=== PATIENT | female | born 1935 | race Asian ===

== ENCOUNTER 2017-05-08 13:27 | Inpatient (IN) | payer OTHER ==
[~2017-05-08] VITALS: Ht 149.9 cm; Wt 45.4 kg
[~2017-05-08 13:27] MED LIST: AMLODIPINE10 M1 PO; ASPI-COR81 M3 PO; CELEBREX200 MG PO; COZAAR50 MG PO; EPI-PEN1 MG/ML MR; GENTEAL OP; LIPI20 PO; LOP50 PO; METFORMIN500 M1 PO; REFRESH PM1 OI1 OP; RESTASIS0.051 OP; SANCTURA20 M1 PO; SYSTANE OP; XALATAN2.5 ML OP
[2017-05-08 18:53] LABS: PLATELET COUNT 254 x10^3mcL (130-400); RED CELL DISTRIBUTION WIDTH 12.4 % (11.5-14.5)
[2017-05-08 18:54] LABS: BASOPHIL % 2.4 % (0-2)
[2017-05-08 19:07] LABS: ALBUMIN 4.2 g/dL (3.4-5.0); ALKALINE PHOSPHATASE 64 U/L (46-116); ALT/SGPT 31 U/L (14-59); AST/SGOT 43 U/L (15-37); BILIRUBIN TOTAL 0.52 mg/dL (0.20-1.00); CALCIUM 9.2 mg/dL (8.5-10.1); CARBON DIOXIDE 27.4 mmol/L (21-32); CHLORIDE SERUM 79 mmol/L (98-107); CREATININE SERUM 0.7 mg/dL (0.6-1.0); GLUCOSE SERUM 115 mg/dL (74-106); POTASSIUM SERUM 3.2 mmol/L (3.5-5.1); TOTAL PROTEIN, SERUM 8.1 g/dL (6.4-8.2)
[2017-05-08 19:09] LABS: SODIUM SERUM 118 mmol/L (136-145)
[2017-05-08 19:14] LABS: UA SPECIFIC GRAVITY 1.015 (1.005-1.035); microscopic required? YES; urine erythrocyte TRACE (NEGATIVE)
[2017-05-08 19:18] LABS: MAGNESIUM 1.6 mg/dL (1.8-2.4); PHOSPHOROUS 2.8 mg/dL (2.5-4.9)
[2017-05-08] MEDS ORDERED: COZAAR100 MG PO (19:59)
[2017-05-08] MEDS ORDERED: LIPI20 PO (20:00)
[2017-05-08] MEDS ORDERED: CARVEDILOL3.125 M1 PO (20:00)
[2017-05-08] MEDS ORDERED: NOR10 PO (20:00)
[2017-05-08] MEDS ORDERED: RESTASIS0.051 OU (20:01)
[2017-05-08] MEDS ORDERED: LATANOPROST2.5 ML OU (20:01)
[2017-05-08] MEDS ORDERED: EPIPEN JR 20.5 MG/ML IM (20:02)
[2017-05-08] MEDS ORDERED: ASPIR 8181 MG PO (20:02)
[2017-05-08] MEDS ORDERED: RETAINE CMC 0.5% OP (20:03)
[2017-05-08] MEDS ORDERED: CENTRUM SILVER1 EACH PO (20:04)
[2017-05-08] MEDS ORDERED: HYDROCHLOROTH12.5 M3 PO (20:04)
[2017-05-08 21:17] LABS: CHOLESTEROL/HDL RATIO 1.7
[2017-05-08 21:19] LABS: T3 TOTAL 0.84 ng/mL
[2017-05-08 21:25] LABS: FREE T4 1.58 ng/dL (0.76-1.46); FREE THYROXINE INDEX 4.5 ug/dL (1.4-4.5); T4(THYROXINE) 12.5 ug/dL (4.7-13.3)
[2017-05-08 22:16] VITALS: BP 161/59
[2017-05-09] VITALS (7 sets, daily range): BP systolic 108–156; BP diastolic 45–64
[2017-05-09 06:38] LABS: BASOPHIL % 0.6 % (0-2); PLATELET COUNT 222 x10^3mcL (130-400); RED CELL DISTRIBUTION WIDTH 12.6 % (11.5-14.5)
[2017-05-09 06:51] LABS: CALCIUM 8.5 mg/dL (8.5-10.1); CARBON DIOXIDE 27.3 mmol/L (21-32); CHLORIDE SERUM 80 mmol/L (98-107); CREATININE SERUM 0.7 mg/dL (0.6-1.0); GLUCOSE SERUM 89 mg/dL (74-106); PHOSPHOROUS 2.6 mg/dL (2.5-4.9); POTASSIUM SERUM 3.5 mmol/L (3.5-5.1)
[2017-05-09 07:01] LABS: SODIUM SERUM 115 mmol/L (136-145)
[2017-05-09 11:22] LABS: CALCIUM 7.9 mg/dL (8.5-10.1); CARBON DIOXIDE 28.4 mmol/L (21-32); CHLORIDE SERUM 88 mmol/L (98-107); CREATININE SERUM 0.8 mg/dL (0.6-1.0); GLUCOSE SERUM 113 mg/dL (74-106); POTASSIUM SERUM 3.7 mmol/L (3.5-5.1)
[2017-05-09 11:25] LABS: SODIUM SERUM 124 mmol/L (136-145)
[2017-05-09 14:39] LABS: CALCIUM 7.8 mg/dL (8.5-10.1); CARBON DIOXIDE 24.1 mmol/L (21-32); CHLORIDE SERUM 85 mmol/L (98-107); CREATININE SERUM 0.8 mg/dL (0.6-1.0); GLUCOSE SERUM 173 mg/dL (74-106); POTASSIUM SERUM 3.4 mmol/L (3.5-5.1)
[2017-05-09 14:42] LABS: SODIUM SERUM 118 mmol/L (136-145)
[2017-05-09 19:20] LABS: CALCIUM 7.9 mg/dL (8.5-10.1); CARBON DIOXIDE 25.6 mmol/L (21-32); CHLORIDE SERUM 92 mmol/L (98-107); CREATININE SERUM 0.8 mg/dL (0.6-1.0); GLUCOSE SERUM 102 mg/dL (74-106); POTASSIUM SERUM 3.6 mmol/L (3.5-5.1); SODIUM SERUM 128 mmol/L (136-145)
[2017-05-10 00:38] LABS: CALCIUM 7.7 mg/dL (8.5-10.1); CARBON DIOXIDE 23.4 mmol/L (21-32); CHLORIDE SERUM 87 mmol/L (98-107); GLUCOSE SERUM 88 mg/dL (74-106); POTASSIUM SERUM 3.8 mmol/L (3.5-5.1)
[2017-05-10 00:41] LABS: SODIUM SERUM 122 mmol/L (136-145)
[2017-05-10 05:58] VITALS: BP 104/50
[2017-05-10 06:12] LABS: BASOPHIL % 0.5 % (0-2); PLATELET COUNT 223 x10^3mcL (130-400); RED CELL DISTRIBUTION WIDTH 12.6 % (11.5-14.5)
[2017-05-10 06:21] LABS: CALCIUM 8.3 mg/dL (8.5-10.1); CARBON DIOXIDE 25.8 mmol/L (21-32); CHLORIDE SERUM 91 mmol/L (98-107); CREATININE SERUM 0.9 mg/dL (0.6-1.0); GLUCOSE SERUM 94 mg/dL (74-106); MAGNESIUM 1.9 mg/dL (1.8-2.4); PHOSPHOROUS 2.4 mg/dL (2.5-4.9)
[2017-05-10 06:38] LABS: SODIUM SERUM 124 mmol/L (136-145)
[2017-05-10 08:53] VITALS: BP 131/53
[2017-05-10 13:18] VITALS: Ht 149.9 cm; Wt 45.4 kg
[2017-05-10 13:23] LABS: CALCIUM 8.5 mg/dL (8.5-10.1); CARBON DIOXIDE 25.5 mmol/L (21-32); CHLORIDE SERUM 91 mmol/L (98-107); CREATININE SERUM 0.9 mg/dL (0.6-1.0); GLUCOSE SERUM 162 mg/dL (74-106); POTASSIUM SERUM 4.1 mmol/L (3.5-5.1); SODIUM SERUM 126 mmol/L (136-145)
[2017-05-10 13:33] VITALS: BP 129/67
[2017-05-10 15:22] LABS: COLLECTION TIME URINE 24 HOUR
[2017-05-10 15:23] LABS: VOLUME UR 600 ML
[2017-05-10 17:46] VITALS: BP 133/56
[2017-05-10 18:39] LABS: CALCIUM 8.2 mg/dL (8.5-10.1); CARBON DIOXIDE 26.5 mmol/L (21-32); CHLORIDE SERUM 97 mmol/L (98-107); CREATININE SERUM 0.9 mg/dL (0.6-1.0); GLUCOSE SERUM 143 mg/dL (74-106); POTASSIUM SERUM 4.3 mmol/L (3.5-5.1); SODIUM SERUM 132 mmol/L (136-145)
[2017-05-10 21:27] VITALS: BP 146/65
[2017-05-11 04:57] VITALS: BP 147/64
[2017-05-11 06:35] LABS: CALCIUM 8.5 mg/dL (8.5-10.1); CARBON DIOXIDE 25.6 mmol/L (21-32); CHLORIDE SERUM 96 mmol/L (98-107); CREATININE SERUM 0.8 mg/dL (0.6-1.0); GLUCOSE SERUM 89 mg/dL (74-106); PHOSPHOROUS 2.5 mg/dL (2.5-4.9); POTASSIUM SERUM 3.8 mmol/L (3.5-5.1); SODIUM SERUM 130 mmol/L (136-145)
[2017-05-11 08:05] LABS: BASOPHIL % 0.6 % (0-2); PLATELET COUNT 199 x10^3mcL (130-400); RED CELL DISTRIBUTION WIDTH 12.5 % (11.5-14.5)
[2017-05-11 09:13] VITALS: BP 133/56
[2017-05-11] MEDS ORDERED: ECO81 PO (12:41)
[2017-05-11] MEDS ORDERED: COR3 PO (12:41)
[2017-05-11] MEDS ORDERED: LIPI20 PO (12:41)
[2017-05-11] MEDS ORDERED: DEC150 PO (13:46)
[2017-05-11] MEDS ORDERED: OXYBUTYNIN CHLOR5 MG PO (13:50)
[2017-05-11] MEDS ORDERED: SODIUM CHLORIDE1 G1 PO (14:44)
[2017-05-11 15:14] VITALS: BP 118/47
[2017-05-11 16:45] VITALS: BP 148/63
== END 2017-05-11 16:57 | disposition home or self-care (01) | DRG 643 ==
LOC: ED 13:27 → DU 19:41 → MU 05-11 07:00
PROVIDERS: Emergency Medicine; Internal Medicine; ADMIT Family Medicine
DX: E22.2 Syndrome of inappropriate secretion of antidiuretic hormone (principal); G93.41 Metabolic encephalopathy; N17.0 Acute kidney failure with tubular necrosis; I16.0 Hypertensive urgency; E87.6 Hypokalemia; E83.42 Hypomagnesemia; E11.65 Type 2 diabetes mellitus with hyperglycemia; E11.51 Type 2 diabetes mellitus with diabetic peripheral angiopathy without gangrene; Z68.20 Body mass index [BMI] 20.0-20.9, adult; Z79.82 Long term (current) use of aspirin; Z79.84 Long term (current) use of oral hypoglycemic drugs
CPT/HCPCS: 83880; 84439; 97110-GP; 97116-GP; 97530-GP; C9113; J3475; J3480; J3490; J7030; J7040; Q0092

== ENCOUNTER 2017-08-11 08:54 | Emergency (ER) | payer OTHER ==
[~2017-08-11] VITALS: Ht 157.5 cm; Wt 54.4 kg
[~2017-08-11 08:54] MED LIST changes: +ASPIR 8181 MG PO; +CARVEDILOL3.125 M1 PO; +CENTRUM SILVER1 EACH PO; +COR3 PO; +COZAAR100 MG PO; +DEC150 PO; +ECO81 PO; +EPIPEN JR 20.5 MG/ML IM; +HYDROCHLOROTH12.5 M3 PO; +LATANOPROST2.5 ML OU; +NOR10 PO; +OXYBUTYNIN CHLOR5 MG PO; +RESTASIS0.051 OU; +RETAINE CMC 0.5% OP; +SODIUM CHLORIDE1 G1 PO
[2017-08-11 09:00] VITALS: BP 147/58
== END 2017-08-11 11:08 | disposition home or self-care (01) ==
LOC: ED 08:54
DX: S46.911A Strain of unspecified muscle, fascia and tendon at shoulder and upper arm level, right arm, initial encounter (principal); M25.551 Pain in right hip; I10 Essential (primary) hypertension; E78.5 Hyperlipidemia, unspecified; I73.9 Peripheral vascular disease, unspecified; G89.29 Other chronic pain; H04.123 Dry eye syndrome of bilateral lacrimal glands; M19.90 Unspecified osteoarthritis, unspecified site; W18.30XA Fall on same level, unspecified, initial encounter; Y93.89 Activity, other specified; Y99.8 Other external cause status; Y92.89 Other specified places as the place of occurrence of the external cause